=== PATIENT | female | born 1945 | race Caucasian/White ===

== ENCOUNTER 2016-05-10 12:10 | Outpatient (CLI) | payer OTHER ==
[~2016-05-10 12:10] MED LIST: BACTRIM1 TAB PO; CLONAZEPAM0.5 MG PO; DITROPAN XL10 MG PO; IBUPROFEN400 MG PO; JUICE PLUS FIBRE PO; LEVOTHYROXINE175 MCG PO; LEVOTHYROXINE200 MCG PO; LEVOTHYROXINE75 MCG PO; PERCOCET1 TA1 PO; SERTRALINE HCL50 MG PO; TRAMADOL HCL50 MG PO; [UNRECOGNIZED DRUG - MIXTURE] PO
--- NOTE | 2016-05-10 14:35 | DIAGNOSTIC IMAGING REPORT ---
PROCEDURE: ABDOMEN/PELVIS WITH CONTRAST CLINICAL INDICATION: RLQ ABD PAIN TECHNIQUE: 125 ml of Isovue 300 were injected intravenously and axial images were obtained of the abdomen and pelvis with sagittal and coronal reformations. COMPARISON: None. FINDINGS: ABDOMEN: The gallbladder contains a multiple small stones layering dependently near the gallbladder neck. The common duct is not dilated, however there is a 4.5 mm stone distally within the common duct. Multiple parapelvic cysts are seen within the left kidney and a few smaller ones present within the right. A few tiny cortical cysts are present bilaterally. No hydronephrosis. No hydroureter or intrarenal calculi. Clear lung bases. Normal sized heart. No hiatal hernia. The liver, adrenal glands, pancreas and spleen are normal. The abdominal aorta is normal in its course and caliber. Minor distal abdominal aortic calcific atherosclerosis. There are no suspicious calcifications, retroperitoneal adenopathy or masses. Stomach and small bowel loops are normal. There is fatty mural infiltration throughout the proximal, transverse, and splenic flexure. A few diverticula are seen within the descending colon which appears diffusely decompressed. Significant diverticulosis is present in the sigmoid colon without acute pericolonic inflammation. In the supraumbilical anterior abdominal wall in the midline, there is subcutaneous inflammation/scarring suggestive of a prior hernia repair. No definite recurrent herniation in this location, however at the umbilicus, there is a narrow neck, fat containing supraumbilical hernia. No surrounding inflammation. PELVIS: The appendix and pelvic small bowel loops are normal. Normal amount of stool in the colon and rectum. Moderate pelvic floor descent. The uterus, ovaries, urinary bladder, and pelvic vessels are normal. No adenopathy, free fluid, or pelvic mass. Severe degenerative disc change at L4-5 and L5-S1. Moderate degenerative change in both hips, right greater than left. IMPRESSION: 1. No acute process. 2. Cholelithiasis and choledocholithiasis without intra or extrahepatic biliary dilatation. Consider ERCP. 3. Diverticulosis without acute diverticulitis. 4. Prior epigastric anterior abdominal wall hernia repair and tiny, narrow neck, fat containing supraumbilical hernia without inflammation. All CT scans at this facility use dose modulation, iterative reconstruction, and/or weight-based dosing when appropriate to reduce radiation dose to as low as reasonably achievable.
== END 2016-05-10 23:00 ==
LOC: CT SRH 12:10
DX: R10.31 Right lower quadrant pain (principal)
CPT/HCPCS: 90074; 90100; 95059; 95150

== ENCOUNTER 2016-06-13 07:14 | Observation (INO) | payer OTHER ==
[~2016-06-13] VITALS: Ht 170.2 cm; Wt 115.9 kg
[2016-06-13] VITALS (9 sets, daily range): BP systolic 112–151; BP diastolic 53–76
--- NOTE | 2016-06-13 10:52 | DIAGNOSTIC IMAGING REPORT ---
PROCEDURE: XR INTRAOPERATIVE LAP CAMERON INDICATION: GALLSTONES TECHNIQUE: Intraoperative fluoroscopy provided for Dr. Olivo performing an intraoperative cholangiogram following cholecystectomy. Total fluoroscopy time 1 minute 28 seconds. Cumulative dose 49.5 mGy. COMPARISON: None. FINDINGS: Five intraoperative fluoroscopic spot images of the right upper quadrant of the abdomen demonstrate cannulation of the cystic duct stump and opacification of the intrahepatic and extrahepatic biliary tree. The extrahepatic and proximal left intrahepatic ducts are moderately dilated. The distal common duct is mildly irregular with a partially occlusive abrupt cutoff before the ampulla. Subsequent images demonstrate passage of a wire through the common duct into the duodenum, passage of a balloon through the ampulla (that image also demonstrates a well-defined distal common duct filling defect), balloon raised in the distal common duct, and subsequent improved opacification of the duodenum indicating decreased partial occlusion and stone passage. The contour of the distal common duct is still mildly irregular. IMPRESSION: 1. Successful balloon bougie of common duct stone during intraoperative cholangiogram. 2. Mild initial, and residual irregularity of the distal common duct contour. While this is likely secondary to chronic edema from chronic choledocholithiasis, neoplasm should be entirely excluded and close follow-up is recommended. 3. Discussed with Dr. Antoine.
--- NOTE | 2016-06-13 11:00 | Provider's Discharge Care Plan ---
Problem, Goal, Plan Problem List 1. Choledocholithiasis with chronic cholecystitis
--- NOTE | 2016-06-13 11:00 | Provider's Discharge Care Plan ---
Problem, Goal, Plan Problem List 1. Choledocholithiasis with chronic cholecystitis
--- NOTE | 2016-06-13 12:03 | OPERATIVE REPORT ---
DATE OF SURGERY: 06/13/2016 SURGEON: Tyron Olivo MD PREOPERATIVE DIAGNOSIS: 1. Cholelithiasis with chronic cholecystitis POSTOPERATIVE DIAGNOSES: 1. Cholelithiasis with chronic cholecystitis 2. Choledocholithiasis PROCEDURES PERFORMED: 1. Laparoscopic cholecystectomy 2. Laparoscopic common bile duct exploration ANESTHESIA: General. INDICATIONS: The patient is a 70-year-old woman with episodic right upper quadrant abdominal pain. Preoperative studies indicate gallstones as well as a possible 4 mm stone in the distal common duct. She has not been jaundiced or had pancreatitis. SURGICAL TECHNIQUE: The patient was taken to the operating room, where a general anesthetic was administered and the patient prepped and draped in the usual sterile fashion. An orogastric tube, IV antibiotics, and sequential compression devices were in place. A local anesthetic of 0.5% Marcaine with epinephrine was used at each incision site. An incision was made a small distance below the umbilicus to avoid a previous supraumbilical ventral hernia repair. A Veress needle was used to insufflate and a 10 mm cannula was passed. Visualization demonstrated adhesions, starting just above the umbilicus, but not involving the area of the puncture. The mesh was plainly visible. The laparoscope was inserted and the gallbladder visualized. Three additional cannulae were placed in their usual locations. The gallbladder was elevated and the cystic duct dissected out at the neck of the gallbladder. The cystic duct was generous in size. A clip was placed in the neck of the gallbladder and a fluoroscopic cholangiogram was carried out. This demonstrated a filling defect in the distal common duct, consistent with the CT findings. Irrigation with saline solution was used, and a repeat cholangiogram showed the stone now impacted in the distal common duct with no flow past it. A hydrophilic-coated guidewire was inserted through the cholangiogram introducer and the dilating balloon passed over the wire. The balloon was placed in the cystic duct and the guidewire advanced under fluoroscopy and maneuvered into the duodenum. The balloon was passed distally and positioned across the sphincter of Oddi, where it was inflated. A waist was noted in the balloon, and the pressure was held until the waist completely disappeared. This was left in place for over a minute, following which the balloon was partially deflated and pulled back up in the cystic duct. Two full syringes of saline were flushed down the common duct, and these cleared rapidly into the duodenum. A fluoroscopic cholangiogram was then performed. There was no residual stone seen. There is some irregularity at the sphincter of Oddi region. There was no obstruction to flow. The balloon apparatus was removed. The cystic duct and cystic artery were doubly clipped and divided. The gallbladder stripped from the gallbladder fossa using electrocautery and delivered to the upper midline trocar site where it was suctioned free of contents and removed and submitted. Local irrigation demonstrated complete hemostasis and no bile leak. Fluid was suctioned away, additional Marcaine instilled and gas evacuated. The trocar sites were closed with interrupted subcuticular 4-0 Vicryl sutures, Steri-Strips, and dressings. The patient left in good condition, and no intraoperative complications were encountered.
[2016-06-14 01:25] VITALS: BP 122/61
[2016-06-14 05:48] VITALS: BP 126/69
--- NOTE | 2016-06-14 06:26 | Progress Note ---
Subjective General 70-year-old female status post laparoscopic cholecystectomy common duct exploration. Patient states that her abdomen is sore. She denies any nausea or vomiting. She is ambulatory. No shortness of breath or chest pain. Physical Exam Vital Signs / I&Os Vital Signs Date Time Temp Pulse Resp B/P Pulse O2 O2 Flow FiO2 Ox Delivery Rate 06/14 0548 98.1 60 18 126/69 97 Nasal 1.0 Cannula 05/05 0125 98.2 70 20 122/61 97 Nasal 2.0 Cannula 05/04 2215 98.6 78 16 126/60 96 Nasal 2.0 Cannula 05/04 2100 Nasal 1.0 Cannula 05/04 1738 98.4 89 17 132/61 94 Nasal 2.0 Cannula 05/04 1436 97.9 83 17 128/64 95 Nasal 2.0 Cannula 05/04 1353 97.9 77 17 112/57 97 Nasal 2.0 Cannula 05/04 1314 80 17 119/53 97 Nasal 2.0 Cannula 05/04 1252 Nasal 2.0 Cannula 05/04 1250 78 18 125/57 96 05/04 1235 81 18 127/53 96 Nasal 2.0 Cannula 05/04 1213 79 18 137/76 98 Nasal 2.0 Cannula 05/04 1154 97.9 81 17 151/72 97 Nasal 2.0 Cannula 05/04 1135 97.9 79 22 141/64 98 05/04 1125 97.7 76 21 150/69 97 05/04 1119 73 15 156/76 99 05/04 1110 74 19 177/106 100 05/04 1100 73 18 162/82 99 05/04 1050 74 18 137/71 99 05/04 1044 72 18 123/79 100 05/04 1039 97.9 71 18 151/117 96 Nasal 2.0 Cannula 05/04 0715 98.8 71 17 133/64 96 I&O 05/04 0800 05/04 1600 05/05 0000 Intake Total 50 950 871 Output Total 1275 300 Balance 50 -325 571 General Appearance Oriented X3 Lungs Clear to auscultation Cardiovascular Regular rate and rhythm Abdomen hypoactive bowel sounds. All trocar sites are dry. Neurological No lateralizing signs Psych/Mental Status Mood normal LAB Results LIPASE: 538 Laboratory Tests 06/14 05/05 0525 0525 Chemistry Plasma Sodium (136 - 145 mmol/L) 144 Plasma Potassium (3.5 - 5.1 mmol/L) 4.5 Plasma Chloride (98 - 107 mmol/L) 108 CO2 (Enzymatic) (21 - 32 mmol/L) 27 BUN (7 - 18 mg/dL) 11 Creatinine (0.6 - 1.3 mg/dL) 0.7 Est GFR ( Amer) (mL/min) >60 Est GFR (Non-Af Amer) (mL/min) >60 Glucose (70 - 110 mg/dL) 123 Plasma Calcium (8.5 - 10.1 mg/dL) 8.0 Total Bilirubin (0.0 - 1.0 mg/dL) 0.9 AST (15 - 37 U/L) 297 ALT (12 - 78 U/L) 285 Alkaline Phosphatase (46 - 116 U/L) 126 Total Protein (6.4 - 8.2 g/dL) 6.2 Albumin (3.3 - 5.0 g/dL) 2.7 Amylase (25 - 115 U/L) 79 Lipase (73 - 393 U/L) 538 Assessment and Plan Problem List 1. Choledocholithiasis with chronic cholecystitis Plan Status post laparoscopic cholecystectomy and common duct exploration. Post op chemical pancreatitis. Plan clear liquid diet. Repeat lipase in a.m.
[2016-06-14 12:05] VITALS: BP 138/59
[2016-06-14 14:34] VITALS: BP 120/64
[2016-06-14 18:21] VITALS: BP 137/78
[2016-06-14 22:33] VITALS: BP 122/63
[2016-06-15 02:56] VITALS: BP 119/74
[2016-06-15 07:20] VITALS: BP 127/66
[2016-06-15 10:10] VITALS: BP 119/71
--- NOTE | 2016-06-15 10:35 | Progress Note ---
Subjective General 70-year-old female postop day 2 status post laparoscopic cholecystectomy common duct exploration. Ambulatory. Tolerating clear liquids no nausea. Some abdominal discomfort. Patient is passing flatus. Physical Exam Vital Signs / I&Os Vital Signs Date Time Temp Pulse Resp B/P Pulse O2 O2 Flow FiO2 Ox Delivery Rate 06/15 1010 97.7 55 17 119/71 95 Room Air 0.0 I&O 06/14 0800 / 1600 05/ 0000 Intake Total 1815 1730 600 Output Total 500 625 700 Balance 1315 1105 -100 General Appearance Alert, Oriented X3, Cooperative, No acute distress HEENT PERRLA Lungs Clear to auscultation Cardiovascular Regular rate and rhythm Abdomen Normal bowel sounds, trocar sites are dry and dressings are intact. Extremities No edema Skin no peripheral cyanosis Neurological No lateralizing signs Psych/Mental Status Mood normal LAB Results Laboratory Tests 06/15 0524 Chemistry Lipase (73 - 393 U/L) 758 Assessment and Plan Problem List 1. Choledocholithiasis with chronic cholecystitis Plan Postop day 2, lipase jumped up to 758. Chemical pancreatitis secondary to common duct exploration. Will continue patient on clear liquid diet and continue hospital observation. We'll repeat lipase in a.m. Continue present management.
[2016-06-15 14:26] VITALS: BP 120/49
[2016-06-15 18:15] VITALS: BP 120/71
[2016-06-15 22:47] VITALS: BP 120/68
[2016-06-16 02:56] VITALS: BP 135/71
[2016-06-16 06:56] VITALS: BP 126/62
--- NOTE | 2016-06-16 10:24 | Progress Note ---
Subjective General 70-year-old female postop day 3 status post laparoscopic cholecystectomy common bile duct exploration. Patient is asymptomatic. Tolerating by mouth. Ambulatory. No shortness of breath or chest pain. Physical Exam Vital Signs / I&Os Vital Signs Date Time Temp Pulse Resp B/P Pulse O2 O2 Flow FiO2 Ox Delivery Rate 06/16 0556 98.1 69 20 126/62 95 Room Air I&O 06/15 0800 06/15 1600 06/16 0000 Intake Total 2707 755 7987 Output Total 1225 1550 600 Balance -44 -590 1960 General Appearance Alert, Oriented X3, Cooperative, No acute distress Lungs Clear to auscultation Cardiovascular Regular rate and rhythm Abdomen Normal bowel sounds, Soft, trocar sites dry LAB Results Laboratory Tests 06/16 618 Chemistry Lipase (73 - 393 U/L) 306 Assessment and Plan Problem List 1. Choledocholithiasis with chronic cholecystitis Plan Patient's asymptomatic. We'll discharge home. Will keep on clear diet for today and slowly advance over the next couple days. Patient will follow up with Dr. Oilvo later this week.
--- NOTE | 2016-06-16 10:24 | Progress Note ---
Subjective General 70-year-old female postop day 3 status post laparoscopic cholecystectomy common bile duct exploration. Patient is asymptomatic. Tolerating by mouth. Ambulatory. No shortness of breath or chest pain. Physical Exam Vital Signs / I&Os Vital Signs Date Time Temp Pulse Resp B/P Pulse O2 O2 Flow FiO2 Ox Delivery Rate 06/16 0556 98.1 69 20 126/62 95 Room Air I&O 06/15 0800 06/15 1600 06/16 0000 Intake Total 6748 823 1719 Output Total 1225 1550 600 Balance -44 -590 1960 General Appearance Alert, Oriented X3, Cooperative, No acute distress Lungs Clear to auscultation Cardiovascular Regular rate and rhythm Abdomen Normal bowel sounds, Soft, trocar sites dry LAB Results Laboratory Tests 06/16 618 Chemistry Lipase (73 - 393 U/L) 306 Assessment and Plan Problem List 1. Choledocholithiasis with chronic cholecystitis Plan Patient's asymptomatic. We'll discharge home. Will keep on clear diet for today and slowly advance over the next couple days. Patient will follow up with Dr. Olivo later this week.
--- NOTE | 2016-07-11 15:52 | DISCHARGE SUMMARY ---
ADMIT DATE: 06/14/2016 DISCHARGE DATE: 06/16/2016 DISCHARGE DIAGNOSIS: 1. Cholelithiasis with chronic cholecystitis 2. Choledocholithiasis 3. Postoperative pancreatitis HOSPITAL COURSE: The patient was admitted for cholelithiasis and chronic cholecystitis. She was taken to surgery on 06/13/2016 where she underwent a laparoscopic cholecystectomy. At the time, unexpected choledocholithiasis was noted, and the patient underwent a laparoscopic common duct exploration with a wire and balloon, which cleared the common duct. She was kept in the hospital overnight to rule out possible postoperative pancreatitis. The next day, the patient was found to have an elevated lipase and was kept in the hospital for an additional day of observation. A repeat lipase the following day was normal, and the patient was started on a diet, which she tolerated and was discharged home. DISCHARGE INSTRUCTIONS/MEDICATIONS: The patient will be followed up in the surgical clinic within 1 week.
== END 2016-06-16 12:46 | disposition home or self-care (01) ==
LOC: SCU SRH 07:14 → OR SRH 07:14 → ACUTE2 SRH 12:02 → OR SRH 06-14 15:00 → ACUTE2 SRH 06-16 12:46
PROVIDERS: ADMIT Surgery
PROC: BF101ZZ Fluoroscopy of Bile Ducts using Low Osmolar Contrast (ICD-10-PCS; principal; 2016-06-13 09:00)
PROC: 0FT44ZZ Resection of Gallbladder, Percutaneous Endoscopic Approach (ICD-10-PCS; principal; 2016-06-13 09:00)
PROC: 0F7C4ZZ Dilation of Ampulla of Vater, Percutaneous Endoscopic Approach (ICD-10-PCS; principal; 2016-06-13 09:00)
DX: K80.64 Calculus of gallbladder and bile duct with chronic cholecystitis without obstruction (principal); K91.89 Other postprocedural complications and disorders of digestive system; K85.90 Acute pancreatitis without necrosis or infection, unspecified; B37.2 Candidiasis of skin and nail; E03.9 Hypothyroidism, unspecified; I69.934 Monoplegia of upper limb following unspecified cerebrovascular disease affecting left non-dominant side